=== PATIENT | female | born 1955 | race Asian ===

== ENCOUNTER 2018-06-13 08:41 | Outpatient (CLI) | payer OTHER ==
--- NOTE | 2018-06-13 09:40 | XRAY Report ---
Reason: PAIN RT 3RD FINGER Procedure Date: 06/13/2018 Accession Number: [id number] / [id number] Procedure: XR - Finger(s) RT CPT Code: FULL RESULT: EXAM: RIGHT THIRD DIGIT RADIOGRAPHY EXAM DATE: 06/13/2018 09:00 AM. CLINICAL HISTORY: Third digit pain with swelling and inability to flex the finger joints without history of trauma. COMPARISON: None. TECHNIQUE: 3 views. FINDINGS: Bones: Normal. No fracture or bone lesion. Joints: Normal. No subluxations. Soft Tissues: There is soft tissue swelling predominantly about the third proximal interphalangeal joint. IMPRESSION: Soft tissue swelling without underlying visualized osseous abnormality. [facility]
== END 2018-06-13 08:42 | disposition home or self-care (01) ==
LOC: DI 08:41
PROVIDERS: ATTEND Internal Medicine
DX: M79.644 Pain in right finger(s) (principal); M79.89 Other specified soft tissue disorders
CPT/HCPCS: 73140

== ENCOUNTER 2019-11-16 09:57 | Outpatient (CLI) | payer OTHER ==
--- NOTE | 2019-11-17 09:13 | Mammography Report ---
Reason: SCREENING MAMMO Procedure Date: 11/16/2019 Accession Number: [id number] / [id number] Procedure: MGS - Screening Mammo Dig Bilat CPT Code: Final Report FULL RESULT: EXAM: Screening Mammo Dig Bilat DATE: 11/16/2019 10:37 AM CLINICAL HISTORY: Screening encounter. TECHNIQUE: (B) - Bilateral CC, laterally exaggerated CC, MLO views were obtained. COMPARISON: 02/25/2015 and 02/09/2011. PARENCHYMAL PATTERN: (D) - The breast(s) demonstrate(s) heterogeneously dense fibroglandular parenchyma. FINDINGS: There are no suspicious masses, calcifications, or areas of distortion. IMPRESSION: Negative examination. BI-RADS category 1. RECOMMENDATION: (ANNUAL) - Recommend routine annual screening mammography. BI-RADS CATEGORY: (1) - Negative. STANDARD QUALIFYING STATEMENTS: 1. This examination was reviewed with the aid of Computer-Aided Detection (CAD). 2. A negative or benign imaging report should not preclude biopsy if clinically suspicious findings are present. 3. Dense breasts may obscure an underlying neoplasm. 4. This examination was reviewed without the aid of 3D breast imaging (tomosynthesis).
== END 2019-11-16 09:58 | disposition home or self-care (01) ==
LOC: DI.S 09:57
DX: Z12.31 Encounter for screening mammogram for malignant neoplasm of breast (principal)
CPT/HCPCS: 77067